=== PATIENT | male | born 1955 | race Caucasian/White ===

== ENCOUNTER 2018-02-14 02:27 | Emergency (ER) | payer MEDICARE ==
[~2018-02-14] VITALS: Ht 175.3 cm; Wt 104.5 kg
[2018-02-14 02:31] VITALS: Ht 175.3 cm; Wt 104.5 kg
[2018-02-14] MEDS ORDERED: LYRICA75 MG PO (02:33)
[2018-02-14] MEDS ORDERED: OXYCODONE-APAP1 TAB PO (02:33)
[2018-02-14] MEDS ORDERED: COREG6.25 MG PO (02:34)
[2018-02-14] MEDS ORDERED: NORCO 10-325 TA1 TAB PO (02:58)
[2018-02-14 03:32] VITALS: BP 135/76
== END 2018-02-14 03:32 | disposition home or self-care (01) ==
LOC: D.ER 02:27
DX: M54.5 Low back pain (principal); Z86.73 Personal history of transient ischemic attack (TIA), and cerebral infarction without residual deficits; I10 Essential (primary) hypertension; F17.200 Nicotine dependence, unspecified, uncomplicated